=== PATIENT | female | born 1940 | race Caucasian/White ===

== ENCOUNTER 2017-08-26 07:33 | Emergency (ER) | payer MEDICARE ==
[2017-08-26 07:41] VITALS: BP 155/73
--- NOTE | 2017-08-26 08:09 | EDM.PDOC ---
ED HPI GENERAL MEDICAL PROBLEM - General Chief Complaint: General Stated Complaint: WEAKNESS Time Seen by Provider: 08/26/17 07:45 Source of Information: Reports: Patient, EMS, Family History Limitations: Reports: No Limitations - History of Present Illness INITIAL COMMENTS - FREE TEXT/NARRATIVE: 76-year-old female brought in by EMS because of progressive and worsening weakness. She was sitting in her chair last night, felt too weak to get out of the chair so spent the entire night in the chair. Her hands ache, her lower extremities ache, she does not feel short of breath, she has not had chest pain , she has no abdominal symptoms, rashes or headache. There was no sudden onset of symptoms, this is been progressively worsening over the past 1-2 weeks. Very nonspecific symptoms, mostly just weakness and general aches in the extremities Onset: Gradual Duration: Week(s): (Several weeks) Severity: Moderate Associated Symptoms: Reports: Malaise, Weakness. Denies: Confusion, Chest Pain , Cough, Diaphoresis, Fever/Chills, Headaches, Nausea/Vomiting, Rash, Shortness of Breath - Related Data Allergies Allergy/AdvReac Type Severity Reaction Status Date / Time No Known Allergies Allergy Verified 12/29/15 08:00 Home Meds: Home Meds Aspirin [Ecotrin] 81 mg PO DAILY 12/27/15 [History] Calcium Carb & Citrate/Vit D3 [Calcium + D3 ER Tablet] 200 - 600 mg PO DAILY [History] Simvastatin 40 mg PO DAILY 12/27/15 [History] Past Medical History HEENT History: Reports: Impaired Vision Cardiovascular History: Reports: Heart Murmur, High Cholesterol Gastrointestinal History: Reports: None FACETOR History: Reports: Musculoskeletal History: Reports: Fracture, Osteoarthritis - Infectious Disease History Infectious Disease History: Reports: Measles - Past Surgical History GI Surgical History: Reports: Colonoscopy Female Surgical History: Reports: None Musculoskeletal Surgical History: Reports: None Dermatological Surgical History: Reports: Skin Biopsy Social & Family History - Tobacco Use Smoking Status *Q: Current Every Day Smoker Years of Tobacco use: 15 Packs/Tins Daily: 0.5 - Caffeine Use Caffeine Use: Reports: Coffee, Soda, Tea - Recreational Drug Use Recreational Drug Use: No ED ROS GENERAL - Review of Systems Review Of Systems: See Below Constitutional: Reports: Malaise, Weakness. Denies: Fever, Chills HEENT: Reports: No Symptoms. Denies: Vision Change Respiratory: Denies: Shortness of Breath, Cough Cardiovascular: Denies: Chest Pain GI/Abdominal: Denies: Abdominal Pain, Diarrhea, Nausea, Vomiting : Reports: No Symptoms Skin: Reports: No Symptoms Neurological: Reports: Weakness. Denies: Headache ED EXAM, GENERAL - Physical Exam Exam: See Below Exam Limited By: No Limitations General Appearance: Alert, No Apparent Distress Eye Exam: Bilateral Eye: EOMI Throat/Mouth: Normal Inspection Head: Atraumatic, Normocephalic Neck: Supple, Non-Tender Respiratory/Chest: No Respiratory Distress, Lungs Clear Cardiovascular: Regular Rate, Rhythm, Extra Beats (Occasional ectopic beats) GI/Abdominal: Soft, Non-Tender Extremities: No: Pedal Edema Neurological: Alert, Oriented, Other (She seems to have problems maintaining her left leg off of the bed against gravity but no other significant symmetric or asymmetric weakness is found. She is able to sit up with little help.) Psychiatric: Flat Affect Skin Exam: Warm, Dry Course - Vital Signs Last Recorded V/S: Last Vital Signs Temp 95.9 F 08/26/17 07:41 Pulse 79 08/26/17 07:41 Resp 14 08/26/17 07:41 BP 155/73 H 08/26/17 07:41 Pulse Ox 94 L 08/26/17 07:41 - Orders/Labs/Meds Orders: Active Orders 24 hr Category Date Time Status UA W/MICROSCOPIC [URIN] Urgent Lab 08/26/17 08:15 Ordered Labs: Laboratory Tests 08/26/17 08/26/17 08/26/17 Range/Units 08:15 08:17 08:17 WBC 8.1 (4.5-11.0) K/uL RBC 5.18 (3.30-5.50) M/uL Hgb 13.7 (12.0-15.0) g/dL Hct 43.1 (36.0-48.0) % MCV 83 (80-98) fL MCH 26 L (27-31) pg MCHC 32 (32-36) % Plt Count 204 (150-400) K/uL Neut % (Auto) 66 (36-66) % Lymph % (Auto) 25 (24-44) % [place] % (Auto) 6 (2-6) % Eos % (Auto) 3 (2-4) % Baso % (Auto) 0 (0-1) % ESR (0-25) mm/hr Sodium 143 (140-148) mmol/L Potassium 3.8 (3.6-5.2) mmol/L Chloride 105 (100-108) mmol/L Carbon Dioxide 29 (21-32) mmol/L Anion Gap 9.4 (5.0-14.0) mmol/L BUN 15 (7-18) mg/dL Creatinine 0.8 (0.6-1.0) mg/dL Est Cr Clr Drug Dosing 62.24 mL/min Estimated GFR (MDRD) > 60 (>60) Glucose 130 H (74-106) mg/dL Calcium 9.1 (8.5-10.1) mg/dL Total Bilirubin 0.3 (0.2-1.0) mg/dL AST 27 (15-37) U/L ALT 32 (12-78) U/L Alkaline Phosphatase 71 (46-116) U/L Creatine Kinase 71 (26-192) U/L Troponin I < 0.017 (0.000-0.056) ng/mL Total Protein 7.2 (6.4-8.2) g/dL Albumin 2.9 L (3.4-5.0) g/dL Globulin 4.3 H (2.3-3.5) g/dL Albumin/Globulin Ratio 0.7 L (1.2-2.2) TSH, Ultra Sensitive 3.530 (0.358-3.740) uIU/mL Urine Color Yellow Urine Appearance Cloudy Urine pH 5.0 (4.5-8.0) Ur Specific Williamson 1.025 (1.008-1.030) Urine Protein 500 H (NEGATIVE) mg/dL Urine Glucose (UA) Normal (NEGATIVE) mg/dL Urine Ketones Negative (NEGATIVE) mg/dL Urine Occult Blood Moderate (NEGATIVE) Urine Nitrite Negative (NEGATIVE) Urine Bilirubin Negative (NEGATIVE) Urine Urobilinogen Normal (NORMAL) mg/dL Ur Leukocyte Esterase Small (NEGATIVE) Urine RBC 0-5 (0-5) Urine WBC 5-10 H (0-5) Ur Epithelial Cells Moderate Amorphous Sediment Not seen Urine Bacteria Rare Urine Mucus Moderate Urine Other 08/26/17 Range/Units 09:20 WBC (4.5-11.0) K/uL RBC (3.30-5.50) M/uL Hgb (12.0-15.0) g/dL Hct (36.0-48.0) % MCV (80-98) fL MCH (27-31) pg MCHC (32-36) % Plt Count (150-400) K/uL Neut % (Auto) (36-66) % Lymph % (Auto) (24-44) % [place] % (Auto) (2-6) % Eos % (Auto) (2-4) % Baso % (Auto) (0-1) % ESR 48 H (0-25) mm/hr Sodium (140-148) mmol/L Potassium (3.6-5.2) mmol/L Chloride (100-108) mmol/L Carbon Dioxide (21-32) mmol/L Anion Gap (5.0-14.0) mmol/L BUN (7-18) mg/dL Creatinine (0.6-1.0) mg/dL Est Cr Clr Drug Dosing mL/min Estimated GFR (MDRD) (>60) Glucose (74-106) mg/dL Calcium (8.5-10.1) mg/dL Total Bilirubin (0.2-1.0) mg/dL AST (15-37) U/L ALT (12-78) U/L Alkaline Phosphatase (46-116) U/L Creatine Kinase (26-192) U/L Troponin I (0.000-0.056) ng/mL Total Protein (6.4-8.2) g/dL Albumin (3.4-5.0) g/dL Globulin (2.3-3.5) g/dL Albumin/Globulin Ratio (1.2-2.2) TSH, Ultra Sensitive (0.358-3.740) uIU/mL Urine Color Urine Appearance Urine pH (4.5-8.0) Ur Specific [place] (1.008-1.030) Urine Protein (NEGATIVE) mg/dL Urine Glucose (UA) (NEGATIVE) mg/dL Urine Ketones (NEGATIVE) mg/dL Urine Occult Blood (NEGATIVE) Urine Nitrite (NEGATIVE) Urine Bilirubin (NEGATIVE) Urine Urobilinogen (NORMAL) mg/dL Ur Leukocyte Esterase (NEGATIVE) Urine RBC (0-5) Urine WBC (0-5) Ur Epithelial Cells Amorphous Sediment Urine Bacteria Urine Mucus Urine Other - Re-Assessments/Exams Free Text/Narrative Re-Assessment/Exam: 08/26/17 08:08 CBC, CMP, troponin, TSH, CK were obtained. Patient was attempted to ambulate to the bathroom for a urinary sample. 08/26/17 08:57 Patient got up and ambulated and provided a urine sample without a problem. Her is concerned that there may be some worsening depression causing physical symptoms. 08/26/17 09:28 Labs returned reassuring, troponin is negative, electrolytes are normal, CK is normal, TSH is normal. She is not anemic. She then ambulated the halls, looks sore in her proximal muscles so sedimentation rate was added. Patient is going to be discharged, if her sedimentation rate is normal her is going to encourage her to try a low-dose antidepressant. If the sedimentation rate is elevated we'll consider a course of prednisone with follow-up for possible polymyalgia rheumatica. 08/26/17 13:08 Sedimentation rate is 48, called and discussed this with the . She is now ambulating around the house without too much difficulty. I don't think the sedimentation rate is high enough to warrant a course of prednisone, I would like to have them discuss this with the primary provider. I did call in generic Zoloft to start at 25 mg a day for the next 2-4 weeks and they can discuss this with her primary as well. Departure - Departure Time of Disposition: 09:38 Disposition: Home, Self-Care 01 Condition: Good Clinical Impression: Weakness - Discharge Information Instructions: Weakness, [id number] Referrals: PCP,None [Primary Care Provider] - Forms: ED Department Discharge Care Plan Goals: Increase activity as tolerated. You will be informed of the last test result later this morning. Consider rechecking next week if not improving. - My Orders Last 24 Hours: My Active Orders 08/26/17 08:15 UA W/MICROSCOPIC [URIN] Urgent - Assessment/Plan Last 24 Hours: My Active Orders 08/26/17 08:15 UA W/MICROSCOPIC [URIN] Urgent
== END 2017-08-26 09:38 | disposition home or self-care (01) ==
LOC: JP.ED 07:33
DX: R53.1 Weakness (principal); F17.210 Nicotine dependence, cigarettes, uncomplicated; E78.00 Pure hypercholesterolemia, unspecified; M19.90 Unspecified osteoarthritis, unspecified site; Z79.899 Other long term (current) drug therapy; Z79.82 Long term (current) use of aspirin
CPT/HCPCS: 36415; 80053; 81001; 82550; 84443; 84484; 85025; 85651; 99285

== ENCOUNTER 2018-12-18 09:34 | Day surgery (SDC) | payer MEDICARE ==
[~2018-12-18 09:34] MED LIST: Midazolam 1 MG/ML 2 ML SDV ONE; Propofol 200 MG/20 ML SDV ONE; fentaNYL 100 MCG/2 ML SDV ONE
[2018-12-18] MEDS ORDERED: Lactated Ringers 1,000 ML IV SCH (10:15)
[2018-12-18] MEDS ORDERED: Propofol 200 MG/20 ML SDV ONE (11:43)
[2018-12-18 12:44] VITALS: BP 142/80; PULSE 80
--- NOTE | 2018-12-19 08:01 | OR ---
DATE OF PROCEDURE: 12/18/2018 SURGEON: Rober Silver MD PREOPERATIVE DIAGNOSIS: History of colon polyps. POSTOPERATIVE DIAGNOSES: Diverticulosis; 2 small colon polyps, 20 cm from the anal verge and hepatic flexure; history of colon polyps. PROCEDURES PERFORMED: Colonoscopy to the cecum with biopsy resection of polyps at 20 cm from the anal verge and hepatic flexure. ANESTHESIA: IV anesthesia with monitored anesthesia care. INDICATION: This 78-year-old white female is referred for a colonoscopy because of a history of colon polyps. Her last colonoscopic exam was done, she says, 3 years ago. I counseled her for the procedure, including risks and alternatives, and she gave her informed consent to proceed. DESCRIPTION OF PROCEDURE: The patient was placed in the left lateral decubitus position. IV anesthesia was administered by the anesthesia service. Time-out was held. A rectal exam was performed, which was unremarkable. The flexible video Olympus colonoscope was introduced through her anus, up her rectum and out her colon, all the way to the cecum. En route, we saw a small polyp, 20 cm from the anal verge, which we removed with the biopsy forceps; and another one at the hepatic flexure, which we removed with the biopsy forceps. En route, additionally to the cecum, we encountered a few scattered left-sided diverticula. There was no bleeding or inflammation associated with them. Once the cecum was reached, the scope was slowly withdrawn, examining the mucosa throughout. No additional mucosal abnormalities were noted. The scope was retroflexed in the rectum with the distal rectum appearing unremarkable. The scope was straightened and removed. She tolerated the procedure well. Rober Silver MD /[id number]
== END 2018-12-18 13:00 | disposition home or self-care (01) ==
LOC: JP.SDS 09:34
PROVIDERS: ATTEND Surgery
DX: Z12.11 Encounter for screening for malignant neoplasm of colon (principal); K63.5 Polyp of colon; K57.30 Diverticulosis of large intestine without perforation or abscess without bleeding; I10 Essential (primary) hypertension; E11.9 Type 2 diabetes mellitus without complications; E78.5 Hyperlipidemia, unspecified; F17.200 Nicotine dependence, unspecified, uncomplicated; Z86.010 Personal history of colon polyps
CPT/HCPCS: 45380; J2250; J2704; J3010; J7120; 88305